=== PATIENT | male | born 1975 | race Caucasian/White ===

== ENCOUNTER 2021-07-31 16:20 | Emergency (ER) | payer SELFPAY ==
[~2021-07-31] VITALS: Ht 160 cm; Wt 80.3 kg
[2021-07-31 16:43] VITALS: BP 142/92
[2021-07-31] MEDS ORDERED: FLUORESCEIN OPTH STRIP 1 MG OP ONE (16:55)
[2021-07-31] MEDS ORDERED: TETRACAINE HCL/PF 0.5% OPTH 4 ML BTL OP ONE (16:55)
--- NOTE | 2021-07-31 17:07 | NUR ---
Note kyreenena in ED - 07/31/21 at 1709 by [id number] ATTEMPTED TO BRING PT BACK, NOT FOUND IN LOBBY/OUTSIDE CALLED PT AND STATED HE HAD TO LEAVE AND WILL RETURN TOMORROW. PATIENT LEFT WITHOUT BEING SEEN BY DR. TORREZ. NO FURTHER CARE PROVIDED FOR PATIENT.
--- NOTE | 2021-07-31 17:07 | NUR ---
ATTEMPTED TO BRING PT BACK, NOT FOUND IN LOBBY/OUTSIDE CALLED PT AND STATED HE HAD TO LEAVE AND WILL RETURN TOMORROW. PATIENT ELOPED FROM FACILITY. DISCHARGE INSTRUCTIONS NOT GIVEN TO PATIENT. FIDEL ZAVALA NOTIFIED.
== END 2021-07-31 17:07 | disposition left against medical advice (07) ==
LOC: MED 16:20
DX: H57.11 Ocular pain, right eye (principal)
CPT/HCPCS: 99281